=== PATIENT | male | born 1955 | race Caucasian/White ===

== ENCOUNTER → 2017-11-03 | Outpatient (CLI) | payer OTHER ==
[~2017-11-03] VITALS: Ht 177.8 cm; Wt 123.7 kg
[~2017-11-03] MED LIST: ASPI1TAB57 PO; CHLORHEXIDINE GLUCONATE 2 % 1 PACK (2 CLOTHS) TOPICAL PRN; CLON0.5T PO; DAPA1TAB3 PO; DEXTROSE 5% IN WATE 1000ML INJ 1,000 ML IV SCH; FERR325T18 PO; FURO1TAB60 PO; GABA100C4 PO; INSU0.2I SQ; LACTATED RINGER'S 1000 ML IV PRN; LISI40TA PO; METF500T4 PO; METO50TA PO; METOPROLOL TARTRATE 25 MG TAB PO PRN; OMEP40CA2 PO; POTA-163 PO; POVIDONE IODINE 5% (ANTISEPSIS KIT) 4 APPLICATIONS EACH NARE PRN; PROPOFOL 200 MG/20 ML AMP IV ONE; ROSU20 PO; SODIUM CHLORID 0.9% 500 ML IV PRN; TYLE325T PO; WARF-20 PO
[2017-11-03 13:06] LABS: INTERNATIONAL NORMALIZED RATIO 1.3 RATIO; PROTHROMBIN TIME - PATIENT 13.5 SEC (9.8-11.6)
[2017-11-03 15:45] VITALS: BP 102/53; PULSE 66; RESP 18; O2SAT 97
--- NOTE | 2017-11-04 13:29 | EKG ---
Date Performed: 11/03/2017 Time Performed: 12:27:39 PTAGE: 62 years EKG: Sinus rhythm PATTERN CONSISTENT WITH PULMONARY DISEASE LEFT ANTERIOR FASCICULAR BLOCK ABNORMAL ECG NO PREVIOUS TRACING DOCTOR: Guillermo Taylor Interpretating Date/Time 11/04/2017 13:25:26
--- NOTE | 2017-11-05 11:46 | MR ---
cc: MD KHOURY J. TIMOTHY METCHICK, LEE N. M.D. MATTHEWS, BIJU T. MD ILIANA ALVAREZ DATE: 11/03/2017. PREOPERATIVE DIAGNOSIS: 1. Anemia. 2. Past history of colon polyps. POSTOPERATIVE DIAGNOSIS: Normal colonoscopy. PROCEDURE PERFORMED: Total colonoscopy. ANESTHESIA: Monitored anesthesia care. SURGEON: Hector Khoury M.D. OPERATIVE FINDINGS: This patient is a approximately three months status post aortic valve surgery and is on Coumadin. The patient has had anemia with a hemoglobin in the 7.9 range. The patient was referred for colonoscopy to rule out any lesions. He does have a past history of a large polyp taken out in the past several years ago. At colonoscopy, no polyps or other mucosal lesions were seen. The prep was good. There was some fluid around but a good look was obtained. DESCRIPTION OF THE PROCEDURE IN DETAIL: The patient was placed on table in the left lateral position and given intravenous monitored anesthesia care and the colonoscope was introduced through the anal canal and taken through the rectum, sigmoid colon, descending colon, transverse colon, ascending colon to the cecum. The ileocecal valve was seen as was the base of the appendix. The scope was sequentially withdrawn circumferentially looking at the mucosa and getting a good look at the mucosa. The fluid that was present was aspirated. No lesions were identified. No polyps or carcinomas. The scope was eventually withdrawn. The patient tolerated the procedure well and left the GI lab in good condition. He should have a repeat colonoscopy in five years time. MD TOSHIA Bowens/HANNAH /3:19 PM /11:38 AM
== END ==
LOC: HSDC 11:59
PROVIDERS: ATTEND Colon & Rectal Surgery
DX: Z86.010 Personal history of colon polyps (principal); D64.9 Anemia, unspecified; K21.9 Gastro-esophageal reflux disease without esophagitis; I10 Essential (primary) hypertension; E11.9 Type 2 diabetes mellitus without complications; Z79.82 Long term (current) use of aspirin; Z79.01 Long term (current) use of anticoagulants
CPT/HCPCS: 00811; 45378; 85610; 93005; J7120